=== PATIENT | female | born 1975 | race Caucasian/White ===

== ENCOUNTER 2024-07-12 05:54 | Day surgery (SDC) | payer OTHER, SELFPAY ==
--- NOTE | 2024-07-05 09:59 | PAT.ANESEVAL ---
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 When Was Last Pacemaker Check QUESTION #4 FULL TEXT: You/Your Family Experience fever (hyperthermia) with Anesthesia Last Oral Intake Last Oral intake: Last Oral Intake NPO since Meds taken in AM with sips of water? Meds patient instructed to take am of surgery PONV PONV - panel maker: PONV - panel maker Female Yes 07/05/24 08:20 HX of Motion Sickness No 07/05/24 08:20 HX of N/V After Surgery No 07/05/24 08:20 Non-Smoker Yes 07/05/24 08:20 Duration of Surgery greater No 07/05/24 08:20 than 60 minutes Number of Risk Factors 2 07/05/24 08:20 PONV Score Moderate Risk 07/05/24 08:20 Height & Weight Height & Weight: Anesthesia: Height & Weight Height 5 ft 4 in 06/24/24 08:41 Respiratory Assessment Respiratory Assessment - panel maker: Respiratory Tract Infection Hx - panel maker Hx Respiratory Tract Infection No 07/05/24 08:20 STOP Sleep Apnea STOP Sleep Apnea - panel maker: STOP Sleep Apnea - panel maker Hx Hypertension No 07/05/24 08:20 Hx Sleep Apnea No 07/05/24 08:20 CPAP BIPAP Do you snore loudly (louder No 07/05/24 08:20 than talking or can be heard Do you often feel tired/ No 07/05/24 08:20 fatigued/ sleepy during daytime? Has anyone observed you stop No 07/05/24 08:20 breathing during sleep? STOP Results Negative 07/05/24 08:20 QUESTION #5 FULL TEXT : Do you snore loudly (louder than talking or can be heard through closed doors)? 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 Specify any problems Hx of Preganancy in last 3 No 07/05/24 08:20 Months Nurse Filling Out Transfusion MGRIFFITH 07/05/24 08:20 & Questions: Date: 07/05/24 07/05/24 08:20 Time: 08:22 07/05/24 08:20 Patient unable to answer at this time (ie. confused, unrespo /Reproduction History /Reproductive History - panel maker: /Reproductive Hx- panel maker Hx Now No 07/05/24 08:20 Gestational Age (in weeks): EDC: Hx Hx Para Hx Section SAB No 07/05/24 08:20 [facility] Medical History (Updated 07/05/24 @ 08:28 by Leslie Fay) Wears glasses Non-smoker History of echocardiogram Breast cyst Heart murmur Home Medications ?Medication ?Instructions ?Recorded ?Last Taken ?Type NK 10/09/23 Unknown History Allergy/AdvReac Type Severity Reaction Status Date / Time No Known Allergies Allergy Verified 07/05/24 08:18 Family History Mother Asthma Hypertension CAD (coronary artery disease) Thyroid disorder Surgical History (Updated 07/05/24 @ 08:19 by Leslie Fay) No pertinent past surgical history Social History Smoking Status: Never smoker alcohol intake: current details: rarely Audit: Pertinent Findings Pertinent Findings Echo (EF%) pertinent findings: 08/02/2023 EF 55 to 60% normal wall motion PA pressure 24 mmHg Recommendation Anesthesia Recommendation Anesthesia recommendation: OPTIMIZED for anesthesia
[2024-07-12] VITALS (9 sets, daily range): BP systolic 123–135; BP diastolic 77–86; PULSE 63–87; RESP 16; TEMP 36.7–37; O2SAT 99–100; BMI 32.1
--- NOTE | 2024-07-12 | BRBX_PTH ---
PATIENT: PRAKASH PEREZ LOC: [facility] [place] U[place][id number] AGE/SX: 48/F ROOM: RE07/12/[address]: Dr. Renita Pruett MD : 1975 BED: DIS: 07/12/2024 SPEC #: [id number] RECD: 07/12/24 11:03 STATUS: [place] MJ #: [id number] SHREYAS: 07/12/24 00:[address]: Renita Pruett DEPT: SURGICAL PATHOLOGY RECD BY: Tamir Prieto ENTERED: 07/12/24 11:04 SP TYPE: BREAST BX OTHR DR: SHINE Abraham Tissues: Right breast, NOS Procedures: Surgery Specimen Level IV HEADER OPERATION: Excision, breast biopsy PRE-OP DIAGNOSIS: Microcalcification of left breast TISSUE SUBMITTED: Left breast biopsy *long stitch-lateral, short stitch- anterior* ISCHEMIC TIME: 7 minutes FIXATION TIME: 60 hours MICROSCOPIC DIAGNOSIS Left breast, excisional biopsy: Fibrocystic changes and mild intraductal hyperplasia without atypia. Duct ectasia. Focal microcalcifications. Negative for malignancy. 07/16/2024 MICROSCOPIC DESCRIPTION Slides are reviewed. GROSS DESCRIPTION Received in fresh and postfix in formalin is one container labeled with the patient's name and designated Left breast biopsy. The specimen consists of a piece of fibroadipose tissue measuring 2.8 x 2.5 x 2.0cm. The specimen is oriented as follows: short stitch -anterior, long stitch -lateral. The specimen is inked as follows: anterior - blue, posterior - green, superior - black, inferior - yellow, medial - red and lateral - orange. Sections reveal wills-yellow adipose cut surfaces mixed with wills-white fibrous areas. The entire specimen is submitted in six cassettes from lateral to medial margin. Cassette 1 contains the lateral margin, cassette 6 contains the medial margin. Sections will be submitted after additional fixation. 07/15/2024 TC:5 CPT:18679
[2024-07-12] MEDS: 0.9% Normal Saline (1000mL) 1,000 ML 15 ML IV (06:15)
[2024-07-12 06:26] LABS: Internal QC Validated? YES +Cl - CLEAR BKGD; Pregnancy, Urine Negative Negative
--- NOTE | 2024-07-12 06:59 | PRE.ANES_ITS ---
ASA Classification* ASA Classification ASA Classification: 2 Assessment & Plan Anesthesia* Anesthesia Assessment Anesthesia Assessment: Discussed sedation and/or anesthesia options, risks, benefits, and alternatives with patient/parents/legal guardian/POA. Questions invited. The patient/parents/legal guardian/POA seems to understand and agrees to proceed with anesthesia plan. Reviewed the physical assessment, medical history, allergy history and patient home medications list prior to surgery/procedure/anesthetic and documented any changes. Performed airway and anesthesia risk assessments. 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 When Was Last Pacemaker Check QUESTION #4 FULL TEXT: You/Your Family Experience fever (hyperthermia) with Anesthesia Last Oral Intake Last Oral intake: Last Oral Intake NPO since 00:00 07/12/24 06:37 Meds taken in AM with sips of No 07/12/24 06:37 water? Meds patient instructed to take am of surgery PONV PONV - health science instructor: PONV - health science instructor Female Yes 07/05/24 08:20 HX of Motion Sickness No 07/05/24 08:20 HX of N/V After Surgery No 07/05/24 08:20 Non-Smoker Yes 07/05/24 08:20 Duration of Surgery greater No 07/05/24 08:20 than 60 minutes Number of Risk Factors 2 07/05/24 08:20 PONV Score Moderate Risk 07/05/24 08:20 Height & Weight Height & Weight: Anesthesia: Height & Weight Height 5 ft 4 in 07/12/24 06:37 Weight: 85 kg 07/12/24 06:37 Body Mass Index (BMI) 32.1 07/12/24 06:37 Respiratory Assessment Respiratory Assessment - health science instructor: Respiratory Tract Infection Hx - health science instructor Hx Respiratory Tract Infection No 07/05/24 08:20 STOP Sleep Apnea STOP Sleep Apnea - health science instructor: STOP Sleep Apnea - health science instructor Hx Hypertension No 07/05/24 08:20 Hx Sleep Apnea No 07/05/24 08:20 CPAP BIPAP Do you snore loudly (louder No 07/05/24 08:20 than talking or can be heard Do you often feel tired/ No 07/05/24 08:20 fatigued/ sleepy during daytime? Has anyone observed you stop No 07/05/24 08:20 breathing during sleep? STOP Results Negative 07/05/24 08:20 QUESTION #5 FULL TEXT : Do you snore loudly (louder than talking or can be heard through closed doors)? 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 Specify any problems Hx of Preganancy in last 3 No 07/05/24 08:20 Months Nurse Filling Out Transfusion MGRIFFITH 07/05/24 08:20 & Questions: Date: 07/05/24 07/05/24 08:20 Time: 08:22 07/05/24 08:20 Patient unable to answer at this time (ie. confused, unrespo /Reproduction History /Reproductive History - health science instructor: /Reproductive Hx- health science instructor Hx Now No 07/05/24 08:20 Gestational Age (in weeks): EDC: Hx Hx Para Hx Section SAB No 07/05/24 08:20 Active Medications Active Medications: Current Medications Generic Name Dose Route Start Last Admin Trade Name Freq PRN Reason Stop Dose Admin Cefazolin Sodium 2 gm/ N/A 20 mls @ 400 mls/hr 07/12/24 07:30 IV 07/12/24 07:32 PREOP ONE Sodium Chloride 1,000 mls @ 15 mls/hr 07/12/24 06:15 07/12/24 06:15 IV 07/17/24 19:34 15 mls/hr .Q48H RAMONA Administration Protocol [facility] Medical History Wears glasses Non-smoker History of echocardiogram Breast cyst Heart murmur Home Medications ?Medication ?Instructions ?Recorded ?Last Taken ?Type NK 10/09/23 Unknown History Allergy/AdvReac Type Severity Reaction Status Date / Time No Known Allergies Allergy Verified 07/05/24 08:18 Family History Mother Asthma Hypertension CAD (coronary artery disease) Thyroid disorder Surgical History No pertinent past surgical history Social History Smoking Status: Never smoker alcohol intake: current details: rarely Review of Systems (Anesthesia) ROS Narrative System reviewed and no additional complaints, except as documented.
--- NOTE | 2024-07-12 07:11 | PCM.HP.BLA ---
History and Physical Date of Admission: 07/12/24 Date of Service: 06/24/24 MR#: [id number] Acct: [id number] Name: PRAKASH PEREZ Rep #: [id number] : 1975 Provider: Dr. Renita Pruett MD Age/Sex: 48/F Location: [facility] Status: Signed Intake Vital Signs 10/08/2408:29 06/24/2408:41 Height 5 ft 4 in 5 ft 4 in Weight: 180 lb 178 lb BMI 30.9 30.5 BP 155/90 H 128/80 H Blood Pressure Location Rt brachial Rt brachial Position Sitting Sitting Respiration 16 18 Pulse 86 Pulse Source Monitor Temp 97.5 F L Temp Source Temporal Pulse Oximetry (%) 99 Oxygen Delivery Method room air Intake Visit Reasons: BIRADS 4 - CALCIFICATIONS Chief Complaint: birads 4-Calcifications Turnstile Attendant Required: No Is patient in pain?: No Allergies No Known Allergies Allergy (Unverified 06/24/24 08:45) Medications ?Medication ?Instructions ?Recorded ?Confirmed ?Type NK 10/09/23 06/24/24 History Have you fallen in the past year?: No PFSH Medical History Breast cyst Heart murmur Family History Mother Asthma Hypertension CAD (coronary artery disease) Thyroid disorder Social History Smoking Status: Never smoker alcohol intake: current details: rarely HPI HPI HPI: 48-year-old female presents due to abnormal left breast mammogram with increased microcalcifications. Patient's mammography showed focal calcifications increased in number at about 1:00. Recommend surgical biopsy coordinate with mammogram localization left breast. Patient denies any breast pain or tenderness or trauma to her breast or nipple discharge. Age of menses 11, age of of first child N/A, family history of breast cancer none, previous breast biopsies N/A. ROS General General: Yes weight change and fatigue; No appetite, colon cancer or breast cancer HEENT HEENT: No difficulty swallowing, eye injury, eye surgery, swollen glands or hoarseness Endo Endocrine: No thyroid disease, diabetes mellitus, thyroid cancer, Hair loss, heat intolerance or cold intolerance Skin Skin: No rash or changing moles Breast Breast: Yes abnormal mammogram and abnormal US; No left breast lump, right breast lump, nipple discharge, breast pain or breast enlargement Musc Musculoskeletal: No back problems, arthritis, rheumatoid arthritis, gout or joint pain Cardio Cardiovascular: Yes murmur; No pacemaker, heart disease, atrial fibrillation, high blood pressure, heart attack, heart stent, palpitations, shortness of breat with exertion or chest pain Psych Psychiatric: No depression, anxiety or hearing voices Resp Respiratory: No shortness of breath, No sleep apnea, No cough, No COPD, No asthma, No emphysema and No wheezing Gastro Gastrointestinal: No abdominal pain, No nausea or vomiting, No diarrhea, No constipation, No blood in stool, No acid reflux, No hemorrhoids, No ulcers, No gallbladder problem and No black,tarry stools Rj Hematologic: No blood thinners, No blood disorders, No bleeding, No anemia and No blood clots Neuro Neurologic: No numbness and No tingling Exam Const General: cooperative, healthy appearing and no acute distress [facility] Head: normal to inspection Chest Other: Breast inspection: Symmetric bilaterally Right breast: Fibroglandular tissue, no masses on exam, no nipple discharge or pain, no change in overlying skin Left breast: Fibroglandular tissue, no masses on exam, no nipple discharge or pain, no change in overlying skin No axillary or supraclavicular adenopathy bilaterally Resp Effort & Inspection: normal respiratory effort Cardio Rate: regular rate GI Inspection: non-distended Palpation: soft Skin General: no rashes or lesions noted Neuro General: patient oriented x3 Extrem General: no clubbing, cyanosis or edema Psych Affect: normal affect Assessment and Plan Assessment and Plan (1) Microcalcification of left breast on mammogram: Status: Acute Plan Discussed with patient that due to location retroareolar would not recommend the stereotactic biopsy but would recommend an excisional biopsy. These are able to be localized fairly well with just mammography no need for the stereotactic needle localization but will plan for an x-ray of the specimen to make sure that we have a good representation of the calcifications. Discussed the procedure of excisional left breast biopsy with the patient including risk not limited to bleeding, infection, need for further surgery and anesthesia. Patient had no further question this time. Renita Pruett M.D. Pager: [phone] [facility] [address] [place] [address], [facility], [address] [place] [address] Office: [phone] Coding Level of Care Code Off vis,est,level 4 Diagnoses Microcalcification of left breast on mammogram R92.0 Clinical Quality Measures Falls Risk Screening/Assistive Devices Have you fallen in the past year?: No 06/28/24 0811 <Electronically signed by Renita Pruett MD> Date Renita Pruett MD
[2024-07-12] MEDS: Cefazolin 2 GM in Syringe IV (07:30)
[2024-07-12] MEDS: Bupiv/Epi 0.25% 30 ML Vial (07:50)
--- NOTE | 2024-07-12 07:57 | BI_ITS ---
SURGICAL BREAST SPECIMEN RADIOGRAPH CLINICAL: Document presence of calcifications in biopsy specimen. FINDINGS: Specimen shows presence of calcifications. Pathology is pending and an addendum to the biopsy report will be performed after the final pathologic diagnosis is rendered. Electronically Signed: Davis Ibarra MD at 14:52 EST , BI/Breast Biopsy Specimen IMPRESSION: undefined
--- NOTE | 2024-07-12 08:02 | PCM.OPRPT ---
Operative Report (Standard) Operative Information Date of Procedure: 07/12/24 Pre-Operative Diagnosis: Left breast microcalcifications Post-Operative Diagnosis: Same Surgery/Procedure Performed: Excisional biopsy left breast product test specialist: Yes Inside Sales Account Executive: Radha Hooper Tasks completed by social and human services assistant: Opening & closing Type of Anesthesia: General/Supplemental RN Documented Start/Stop Times: Operation Date: 07/12/24 07:30 Case Time Into Pre-Op 07/12/24 06:11 Out of Pre-Op 07/12/24 07:25 Anesthesia Start 07/12/24 07:28 Into Room 07/12/24 07:28 Procedure Start 07/12/24 07:44 Procedure End 07/12/24 08:14 Anesthesia End 07/12/24 08:15 Out of Room 07/12/24 08:15 Into Recovery 07/12/24 08:20 Out of Recovery 07/12/24 09:11 Into Phase II Recovery 07/12/24 09:12 Out of Phase II 07/12/24 09:45 Procedure Start Time: 07:44 Procedure Stop Time: 08:14 Select all DRAINS/GRAFTS/IMPLANTS that apply: None Special Medications: Ancef 2 g IV x 1 Estimated Blood Loss: < 10 cc Specimen collected: Yes Description of specimen(s) removed: Left breast microcalcifications retroareolar Description of surgery: Patient is brought into the operating placed spinal operating table. Timeout was completed verifying correct patient, procedure, position, special equipment before beginning procedure. General anesthesia was induced. Left breast was prepped draped in usual sterile fashion. Curvilinear incision was made at 2-3 o'clock on the areolar border with 15 blade scalpel. Tissue was dissected using electrocautery. Specimen was removed and oriented and sent to mammography for an x-ray to confirm calcifications. Calcifications were confirmed. Local anesthesia of 0.25% Marcaine with epinephrine was used at the area of incision. Incision was closed with 3-0 Vicryl subdermal sutures and 4-0 running Monocryl. Dermabond was placed on the skin. Surgical bra was placed. Patient tolerated procedure well was taken to the postanesthesia care in stable condition. Surgical Findings: X-ray confirms microcalcifications removed Complications Complications: No
--- NOTE | 2024-07-12 08:05 | DCINST_ITS ---
Discharge Instructions Diet Discharge Diet: No restrictions Activity Discharge Activity: May Not Drive (for 2-3 days or while taking narcotic pain meds.) May shower in (days): 1 Lifting Restrictions: 10 pounds for 1 week. Dressing / Incision Call your doctor if your incision/area has: Continuous Slow Oozing, Sudden Increased Bleeding, Increased Pain/ Swelling and Increased Redness Call your doctor if you observe: Fever of 101 or Higher Suture Line Care: Avoid Pulling/Pushing and Avoid Pinching/Bending Remove Dressing in: 1 day Additional Dressing/Incision Instructions:: Dermabond (glue) was used at the incision this may start to peel off in about 5 days. Encourage wearing a good supportive/compression bra for the first couple of days even at night. Follow Up Care Please Follow Up With: Renita Pruett MD When: Please call [phone] for an appointment to be seen in 2 week. Will call with pathology results. Test Results: Test results from this visit will be discussed in further detail at your follow- up appointment, if applicable. Discharge Plan Admission Attending Provider: Renita Pruett Primary Care Provider: Ginny Bojorquez Instructions Additional Instructions / Restrictions: Okay to take ibuprofen 400-600 mg PO q6hr PRN and Tylenol 650 to 1000 mg p.o. every 6 hours as needed along with the oxycodone. Take all pain meds with food. Oxycodone can cause constipation recommend taking daily stool softener (i.e. Colace/docusate) while taking the pain meds. Recommend starting some MiraLAX in 1 to 2 days if no bowel movement. If still no bowel movement the following day recommend taking additional MiraLAX versus magnesium citrate half the bottle and waiting 4-6 hours if still no results take the other half the bottle. Print Language: [place]an Discharge Orders/Prescriptions Prescriptions: New oxycodone 5 mg capsule 5 mg PO Q6H PRN (Reason: pain) 3 Days Qty: 5 0RF Referrals / Follow Up: Ginny Bojorquez PA [Primary Care Provider] - Disposition Disposition (needs filled in before D/C Order can be placed): Home, Self Care
--- NOTE | 2024-07-12 08:20 | PCM.POST.ANE ---
Anesthesia: Postop Eval I Current Vital Signs Temperature: 98.6 F Pulse Rate: 87 Blood Pressure: 134/86 Respiratory Rate: 16 Pulse Ox: 99 Oxygen Delivery Method: Room Air Assessment Airway patent: Yes Spontaneous unlabored respirations: Yes Mental status: Awake and Calm nausea: No Vomiting: No Anesthesia Complication: No Fluid Hydration Crystalloid volume administer (ml): 700 Total IV fluid infused: 700 Progress Note Anesthesia document: Postop Eval 1 completed: Yes
--- NOTE | 2024-07-12 09:30 | POSTOPAN2_ITS ---
Anesthesia Postop Eval I Sum Postop Eval Completion status Anesthesia document: Postop Eval 1 completed: Yes Anesthesia Postop Eval I Summary Anesthesia Postop Eval I Summary: Anesthesia Postop Eval I: Assessment Summary Airway patent Yes 07/12/24 08:21 M[employer]ER [employer].[email or web address] Spontaneous unlabored Yes 07/12/24 08:21 M[employer]GDOTT respirations Mental status Awake,Calm 07/12/24 08:21 MIX[employer].GDOTT nausea No 07/12/24 08:21 MIXER [employer].GDOTT Vomiting No 07/12/24 08:21 MIXER [employer].GDOTT Anesthesia Postop Eval I: Fluid Summary Crystalloid volume administer 700 07/12/24 08:21 MIX[employer].GDOTT (ml) Colloids volume administered ( ml) Blood Product volume administered (ml) Total IV fluid infused 700 07/12/24 08:21 MIX[employer].GDOTT Anesthesia Postop Eval I: Summary Notes Anesthesia Complication No 07/12/24 08:21 MIXER [employer].GDOTT Anesthesia Complication Comment: Post-operative progress note Anesthesia: Postop Eval II Evaluation Mental status: Awake Pain Level: 0 nausea: No Vomiting: No
--- NOTE | 2024-07-12 09:30 | PCM.POSTANE2 ---
Anesthesia Postop Eval I Sum Postop Eval Completion status Anesthesia document: Postop Eval 1 completed: Yes Anesthesia Postop Eval I Summary Anesthesia Postop Eval I Summary: Anesthesia Postop Eval I: Assessment Summary Airway patent Yes 07/12/24 08:21 BOW STRING MAKER.[email or web address] Spontaneous unlabored Yes 07/12/24 08:21 BOW STRING MAKER.GDOTT respirations Mental status Awake,Calm 07/12/24 08:21 BOW STRING MAKER.GDOTT nausea No 07/12/24 08:21 BOW STRING MAKER.GDOTT Vomiting No 07/12/24 08:21 BOW STRING MAKER.GDOTT Anesthesia Postop Eval I: Fluid Summary Crystalloid volume administer 700 07/12/24 08:21 BOW STRING MAKER.GDOTT (ml) Colloids volume administered ( ml) Blood Product volume administered (ml) Total IV fluid infused 700 07/12/24 08:21 BOW STRING MAKER.GDOTT Anesthesia Postop Eval I: Summary Notes Anesthesia Complication No 07/12/24 08:21 BOW STRING MAKER.GDOTT Anesthesia Complication Comment: Post-operative progress note Anesthesia: Postop Eval II Evaluation Mental status: Awake Pain Level: 0 nausea: No Vomiting: No
== END 2024-07-12 09:45 | disposition home or self-care (01) ==
LOC: SDC 05:59 → AC 06:02
PROVIDERS: Anesthesiology; PCP Physician Assistant; Referring Provider Surgery; Visit Provider Surgery
PROC: (CPT 19101; principal; 2024-07-12 07:15)
DX: R92.0 Mammographic microcalcification found on diagnostic imaging of breast (principal); N60.42 Mammary duct ectasia of left breast; N62 Hypertrophy of breast
CPT/HCPCS: 19101; 00400; 76098; 81025; 88305; J2405